=== PATIENT | female | born 1945 | race Two or more races ===

== ENCOUNTER 2024-08-31 09:54 | Emergency (ER) | payer MEDICARE, SELFPAY ==
[2024-08-31] VITALS (8 sets, daily range): BP systolic 132–165; BP diastolic 77–91; PULSE 71–90; RESP 18; TEMP 37.1; O2SAT 95–98; BMI 29.1
--- NOTE | 2024-08-31 10:05 | PC.NURSE ---
FSBS is 325 at this time.
[2024-08-31 10:09] LABS: POC Glucose,Bedside 325 (70-110)
--- NOTE | 2024-08-31 10:14 | CT_ITS ---
FINAL REPORT TECHNIQUE: Pre-and postcontrast images of the abdomen and pelvis were performed by computed tomography. Extensive 3-D reconstruction images were performed. A CTA was performed. This study was performed with techniques to keep radiation doses as low as reasonably achievable (ALARA). Individualized dose reduction techniques using automated exposure control or adjustment of mA and/or kV according to the patient's size were employed. CLINICAL HISTORY: pain with eating/vomiting/food aversion. r/o EDDIE COMPARISON: None FINDINGS: ABDOMEN AND PELVIS: The lung bases are clear. Precontrast images demonstrate no evidence of nephrolithiasis. Mild bilateral adrenal hyperplasia is present. Mild fatty infiltration of the liver is noted. The gallbladder has been surgically resected. The pancreas appears unremarkable. There is relative hypoperfusion of the lower pole of the left kidney in the upper pole of the right kidney, best seen on images #84 through 100 of series 1001. The uterus is eccentric to the left. CTA: The abdominal aorta is proper caliber. Dense calcification is present at the origin of the celiac axis, that is likely producing approximately 50% luminal diameter stenosis. There is also calcification present at the origin of the superior mesenteric artery, and at this level the plaque appears to cause less than 50% luminal diameter stenosis. The inferior mesenteric artery is patent. There are 2 right renal arteries present and a single left renal artery, without significant stenosis. The common iliac, and external iliac arteries are unremarkable in appearance. IMPRESSION: There is relative hypoperfusion during the arterial phase of the lower pole of the left kidney on the upper pole of the right kidney as described above. This is of uncertain etiology, and may be secondary to either small vessel disease or potentially emboli. The renal arteries themselves on the CTA images appear unremarkable. Dense calcification is present at the origin of the celiac axis, that is likely producing approximately 50% luminal diameter stenosis. There is calcification also present at the origin of the superior mesenteric artery, which appears to cause less than 50% luminal diameter stenosis. Reviewed, Interpreted and Dictated by Juve Antoine MD Transcribed by Kathie Roy Authenticated and [facility]
--- NOTE | 2024-08-31 10:15 | XR_ITS ---
FINAL REPORT CLINICAL HISTORY: LLL wheezes, vomiting COMPARISON: None FINDINGS: A single portable view of the chest was obtained. The heart size is normal. The mediastinum is normal. There is no focal infiltrate or edema. Chronic changes are present in the lung bases. There are no pleural effusions. There is no pneumothorax. There is 20 degrees of thoracic scoliosis, apex to the left. IMPRESSION: Chronic changes are present in the lung bases, with no acute cardiopulmonary process. Reviewed, Interpreted and Dictated by Juve Antoine MD Transcribed by Kathie Roy Authenticated and [facility]
--- NOTE | 2024-08-31 10:17 | PC.NURSE ---
RT notified of VBG in lab at this time
--- NOTE | 2024-08-31 10:18 | ED_ITS ---
Discharge Plan Disposition Patient Disposition: Home, Self-Care Condition: Good Prescriptions Prescriptions: New insulin glargine 100 unit/mL (3 mL) insulin pen 20 unit SQ HS Qty: 15 3RF ondansetron 4 mg tablet,disintegrating 4 mg PO Q6H PRN (Reason: nausea and vomiting) Qty: 10 2RF lisinopril 5 mg tablet 5 mg PO DAILY Qty: 30 3RF pravastatin 40 mg tablet 40 mg PO DAILY Qty: 30 2RF No Action pravastatin 40 mg Tablet 40 mg PO DAILY lisinopril 5 mg Tablet 5 mg PO DAILY Referrals Follow up/Referrals: Mitali Johnson APRN [Primary Care Provider] - See instructions Activity Restrictions/Add. Instructions Additional Instructions/Restrictions: Call your family doctor to establish care for this visit to the emergency department and schedule follow-up within 48 hours to ensure improvement. If you have any worsening of your condition or any other concerning signs or symptoms, return to the emergency department or your primary care doctor for further evaluation. Tomorrow, 09/01, inject 20 units at night of the long-acting Lantus pen. Lantus also sent to pharmacy of choice at [facility]. Continue working with insurance and following up with Dr. Jarrett. Endocrinology will be joining [facility] in the next couple of months, not accepting patients yet, but I would discuss this with your family doctor when establishing care. Continue to follow with Mitali Johnson at the clinic for further meds and refills. Clinical Impressions Clinical Impression: Diabetes mellitus Qualifiers: Diabetes mellitus type: type 2 Diabetes mellitus jail insulin use: with jail use Diabetes mellitus complication status: without complication Q ualified Code(s): E11.9 - Type 2 diabetes mellitus without complications Instructions Patient Instructions: DI for Hyperglycemia -- Adult Print Language Print Language: Yi Discharge ED Provider: Bashir Kraus General Adult HPI General Chief complaint: Hyper/Hypoglycemia Stated complaint: Blood sugar 359- has not eaten for a few days/weak Time Seen by Provider: 08/31/24 10:02 Mode of Arrival: Wheelchair Source of Information: Patient Description of Symptoms (Recalled from ER Triage Doc. by RN): Patient presents to ED with high blood sugar and no food intake since thursday. Patient reports stomach cramps and vomiting. Patient reports last BM was this morning. History of Present Illness HPI narrative: Please note that above description of symptoms, in this electronic medical record under categorization of recalled from ER triage doctor by RN are reflective of an initial nursing assessment, however, is not reflective of my full history and physical exam that was personally taken and clarified. Consequentially, this preceding description of symptoms, which may include the patient's categorized chief complaint in the EMR, do not reflect my personal clinical impression, and the ultimate description of history of present illness and patient stated complaints should be deferred to this section of the note. Unless stated otherwise or congruent with this section of the note, additional signs, symptoms, or incongruence should be interpreted as inaccurate with my clinical impression. Related Data Home Medications ?Medication ?Instructions ?Recorded ?Confirmed lisinopril 5 mg tablet 5 mg PO DAILY 08/31/24 08/31/24 pravastatin 40 mg tablet 40 mg PO DAILY 08/31/24 08/31/24 Previous Rx's ?Medication ?Instructions ?Recorded insulin glargine 100 unit/mL (3 20 unit (0.2 mL) SQ HS #15 mL 08/31/24 mL) subcutaneous pen lisinopril 5 mg tablet 5 mg PO DAILY #30 tabs 08/31/24 ondansetron 4 mg disintegrating 4 mg PO Q6H PRN nausea and 08/31/24 tablet vomiting #10 tabs pravastatin 40 mg tablet 40 mg PO DAILY #30 tabs 08/31/24 Allergies Allergy/AdvReac Type Severity Reaction Status Date / Time No Known Allergies Allergy Verified 08/31/24 10:15 [facility] Disclaimer: The information contained in this section may have been updated after the patient was seen, as this information can be updated by other users. Social History Smoking Status: Never smoker alcohol intake: never current occupational status: retired Travel in the last 8 weeks?: None ROS Obtained: Yes All systems reviewed & no additional complaints except as documented Physical Exam General General appearance: alert and in no apparent distress Head Head exam: atraumatic and normocephalic Eye Eye exam: Present normal appearance, PERRL and EOMI Neck Neck exam: Present normal inspection, full ROM and trachea midline Respiratory Respiratory exam: Present wheezes (Left lower lung isolated anteriorly); Absent respiratory distress, stridor, accessory muscle use or prolonged expiratory phase Cardiovascular Cardiovascular exam: Present regular rate, normal rhythm, normal heart sounds and other (Pulses equal symmetric in upper and lower extremities) Abdominal Exam Abdominal exam: Present soft and tenderness; Absent distention, guarding, rebound, rigidity or pulsatile mass Abdominal tenderness: Present diffuse and moderate Extremities Exam Extremities exam: Absent edema Neurological Exam Neurological exam: Present alert, oriented X3, CN II-XII intact and normal gait; Absent motor sensory deficit Skin Skin exam: Present warm and dry; Absent diaphoresis or erythema Medical Decision Making Medical Records Medical records reviewed: Yes I reviewed the patient's medical records. Screening: Per USPSTF and CDC recommendations, given the prevalence of disease in our region, it is our hospital?s policy to screen for HIV and viral Hepatitis for all patients aged 18 and over and those with ongoing risk factors. Kike Inquiry Pt receiving controlled substance: No Kike was queried for this patient: No Vital Signs: 08/31/24 10:10 08/31/24 10:30 08/31/24 11:00 Temperature 98.8 F Temperature Source Oral Pulse Rate 86 82 Pulse Rate [Right Brachial] 90 Respiratory Rate 18 Blood Pressure 132/77 165/79 H Blood Pressure [Right Arm] 144/84 H Blood Pressure Mean [Right Arm] 104 Blood Pressure Source Blood Pressure Source [Right Arm] Automatic Cuff Blood Pressure Position Blood Pressure Position [Right Arm] Supine 02 Sat by Pulse Oximetry 98 95 98 Oxygen Delivery Method Room Air Room Air Room Air 08/31/24 11:31 08/31/24 12:01 08/31/24 12:31 Temperature Temperature Source Pulse Rate 80 82 87 Pulse Rate [Right Brachial] Respiratory Rate Blood Pressure 143/81 H 141/77 H 161/91 H Blood Pressure [Right Arm] Blood Pressure Mean [Right Arm] Blood Pressure Source Blood Pressure Source [Right Arm] Blood Pressure Position Blood Pressure Position [Right Arm] 02 Sat by Pulse Oximetry 95 96 95 Oxygen Delivery Method Room Air Room Air Room Air 08/31/24 13:00 08/31/24 13:36 Temperature 98.7 F Temperature Source Oral Pulse Rate 71 75 Pulse Rate [Right Brachial] Respiratory Rate 18 Blood Pressure 156/84 H 152/80 H Blood Pressure [Right Arm] Blood Pressure Mean [Right Arm] Blood Pressure Source Automatic Cuff Blood Pressure Source [Right Arm] Blood Pressure Position Supine Blood Pressure Position [Right Arm] 02 Sat by Pulse Oximetry 96 Oxygen Delivery Method Room Air Room Air Lab Data Lab Results 08/31/24 10:02: POC Glucose 325 H* 08/31/24 10:06: WBC 12.9 H, RBC 5.06, Hgb 14.0, Hct 43.0, MCV 85.0, MCH 27.7, MCHC 32.6, RDW 13.4, Plt Count 250, MPV 11.8 H, Neut % (Auto) 74.8, Lymph % (Auto) 18.0, [place] % (Auto) 6.3, Eos % (Auto) 0.2, Baso % (Auto) 0.3, Neut # (Auto) 9.7 H, Lymph # (Auto) 2.3, [place] # (Auto) 0.8, Eos # (Auto) 0.0, Baso # (Auto) 0.0, PT 11.2, INR 1.00, APTT 26.5, Sodium 135 L, Potassium 5.0, Chloride 101, Carbon Dioxide 26, Anion Gap 13.0, BUN 23 H, Creatinine 1.00, Estimated Creat Clear 42, Estimated GFR 53 L, Est GFR ( Amer) 65, Glucose 373 H, H emoglobin A1c 12.6 H, Calcium 9.5, Magnesium 2.0, Total Bilirubin 0.9, AST 27, ALT 17, Alkaline Phosphatase 91, Troponin I < 0.01, Total Protein 8.0, Albumin 4.6, Globulin 3.4 H, Albumin/Globulin Ratio 1.4, Triglycerides 169 H, Cholesterol 183, LDL Cholesterol Direct 85.26 L, VLDL Cholesterol 34, HDL Cholesterol 67 H, Cholesterol/HDL Ratio 2.7, Lipase 227, Procalcitonin 0.060, Acetone Level None detected 08/31/24 10:18: VBG pH 7.36, VBG pCO2 42.1, VBG pO2 36.5, VBG HCO3 23.2, VBG Total CO2 24.5, VBG O2 Saturation 70.4 H, VBG Base Excess -2.2, VBG Lactic Acid 2.4 H 08/31/24 11:11: Urine Color Yellow, Urine Appearance Clear, Urine pH 5.5, Ur Specific [place] 1.015, Urine Protein Trace, Urine Glucose (UA) 3+, Urine Ketones 1+, Urine Blood Negative, Urine Nitrate Negative, Urine Bilirubin Negative, Urine Urobilinogen 0.2, Ur Leukocyte Esterase Negative, Urine RBC None, Urine WBC Occasional, Ur Squamous Epith Cells Occasional, Ur Transition Epith Cell Occ, Ur Renal Epithelial Cell Occasional, Urine Bacteria Trace, Hyaline Casts 3-5 08/31/24 10:06 08/31/24 10:06 Orders (Tests/Meds): ED MEDICATIONS Discontinued Medications Generic Name Dose Route Start Last Admin Trade Name Freq PRN Reason Stop Dose Admin Acetaminophen 1,000 mg 08/31/24 10:44 08/31/24 10:47 Acetaminophen 1,000mg/100ml Vial IV 08/31/24 10:45 1,000 mg ONCE ONE Administration Lactated Ringer's 1,000 mls @ 999 mls/hr 08/31/24 10:44 08/31/24 10:47 Lactated Ringer's 1000 Ml Bag IV 08/31/24 11:44 999 mls/hr .Q1H1M ONE Administration Insulin Glargine 10 unit 08/31/24 12:17 08/31/24 12:38 Insulin Glargine 100 Units/Ml 10ml Vial SUBCUT 08/31/24 12:18 Not Given ONCE ONE Insulin Glargine 10 unit 08/31/24 12:45 08/31/24 12:37 Insulin Glargine 100 Units/Ml 3ml Flexpen SUBCUT 08/31/24 12:46 10 units ONCE ONE Administration Insulin Human Regular 6 unit 08/31/24 11:24 08/31/24 11:28 Insulin Human Regular 100 Units/Ml 10ml Vial 0.1 unit/kg (6 unit) 08/31/24 11:25 6 unit IV Administration ONCE ONE Iopamidol 80 ml 08/31/24 10:49 08/31/24 10:50 Iopamidol-370 (76%);100ml Bottle IV 08/31/24 10:50 80 ml ONCE ONE Administration Ketorolac Tromethamine 15 mg 08/31/24 10:44 08/31/24 10:47 Ketorolac 30mg/Ml Vial IV 08/31/24 10:45 15 mg ONCE ONE Administration Ondansetron HCl 4 mg 08/31/24 10:44 08/31/24 10:48 Ondansetron 4mg/2ml Vial IV 08/31/24 10:45 4 mg ONCE ONE Administration Sodium Chloride 50 ml 08/31/24 10:49 08/31/24 10:50 0.9 % Sodium Chloride 50 Ml Vial IV 08/31/24 10:50 50 ml ONCE ONE Administration Sodium Chloride 10 ml 08/31/24 10:49 08/31/24 10:50 Sodium Chloride 0.9% 10ml Syr (Rad Only) IV 08/31/24 10:50 10 ml ONCE ONE Administration ORDERS Category Date Time Status CT angio abdomen pelvis Stat Cat Scan 08/31/24 10:14 Completed XR chest portable Stat Exams 08/31/24 10:15 Completed Acetone, Serum (Rapid) Stat Lab 08/31/24 10:06 Completed Complete Blood Count Auto Diff Stat Lab 08/31/24 10:06 Completed Comprehensive Metabolic Panel Stat Lab 08/31/24 10:06 Completed Hemoglobin A1C Stat Lab 08/31/24 10:06 Completed Lipase Stat Lab 08/31/24 10:06 Completed Lipid Panel Stat Lab 08/31/24 10:06 Completed Magnesium Stat Lab 08/31/24 10:06 Completed POC Glucose,Bedside Routine Lab 08/31/24 10:02 Completed PT INR [Prothrombin Time INR] Stat Lab 08/31/24 10:06 Completed PTT [Activated Partial Thrombo Time] Stat Lab 08/31/24 10:06 Completed Procalcitonin Stat Lab 08/31/24 10:06 Completed Troponin I Stat Lab 08/31/24 10:06 Completed Urinalysis and Microscopic Stat Lab 08/31/24 11:11 Completed VBG [Venous Blood Gas] Stat RT 08/31/24 10:18 Completed HEART Score History (anamnesis): Slightly suspicious ECG: Non-specific disturbance Age: >65 years Risk factors: 3 or more risk factors Troponin: </= normal limit HEART Score: 5 Medical Decision Narrative: 78-year-old female history of dementia, diabetes on oral and subcutaneous therapies presenting with abdominal pain and vomiting. This been going on for about a week. Family states she has had 0 p.o. intake for at least a week at this point. Becoming progressively weak. Still mentating at her baseline, despite her dementia. Has been taking her meds as prescribed, reportedly by and daughter. Patient states that the vomiting started first, abdominal pain started a couple days later. Last bowel movement was today, 08/31 and was normal for her without blood, straining, constipation, diarrhea, etc. Patient has not had fevers, chills, urinary symptoms. No systemic signs or symptoms. Vomiting mostly in the setting of p.o. intake. Patient states that the pain was worse yesterday, 08/30, much better today. States that it is epigastric and radiates upward into her chest as well as downward into her pelvis. Nothing in particular makes it better or worse other than not eating. History was obtained via conversation with patient, family, certified professional coder. On arrival, patient hemodynamically stable, alert, oriented to person, place, situation, appropriate, GCS 15, moving all extremities spontaneously, pupils equal and reactive to light. Full physical exam performed and significant for chronically ill-appearing female who is in no acute distress. She is holding her abdomen. Appears to be more tender in the epigastrium, but mild to moderate diffuse tenderness. Nonperitoneal, no flank tenderness. No outward signs of abnormality. She is nondistended. Cardiac exam with no murmurs gallops or rubs, nontachycardic. Lungs are clear with the exception of anterior left lower lung nur with isolated wheezes. Differential includes pneumonia, ACS, [place], gastritis, gastroparesis, nonocclusive mesenteric ischemia, appendicitis, enteritis, cholecystitis, aortic pathology, among others. Patient placed on continuous cardiac monitoring and continuous pulse ox with initial blood pressure 144/84, heart rate 90, saturation 98% on room air. Independent interpretation of EKG shows sinus rhythm 84 bpm with left axis deviation and LA interval 145, QRS 89, QTc 404. T wave inversions in lateral and inferior leads without reciprocal elevations. Patient was given fluids, Zofran, Toradol, acetaminophen for symptomatic management and correction of underlying abnormalities. Workup independently interpreted and significant for mild leukocytosis, but nonactionable coags, nonactionable VBG. Patient's chemistry largely nonactionable other than glucose 373 and hemoglobin A1c 12.6. Troponin negative and lipid panel also elevated. Lipase negative, urinalysis with mild ketonuria, otherwise unremarkable. On independent interpretation of imaging, no acute cardiopulmonary space disease on chest x-ray. CT abdomen and pelvis without acute intra-abdominal pathology. Just chronic vascular changes. See radiology read for full review of final results. Heart score 5. Prolonged conversation had with patient and family regarding outpatient management. I also consulted the hospitalist on-call and talk to him about outpatient management. After talking to family, I reached out to the pharmacy that used to follow with in [facility] at [facility]. They state that they had patient on long-acting insulin glargine 10 units but no short acting. Also had her on Ozempic 1 mg and lisinopril and pravastatin. Glargine, statin and OFE inhibitor were sent to the pharmacy. Patient was given first dose of glargine insulin here in the emergency department. 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 Patient family graciously agreed and verified their understanding. Also have follow-up at the [facility] as well as try to get follow-up with Dr. Jarrett. Because patient at baseline without signs or symptoms of clinical decompensation, deemed appropriate for discharge. Results were relayed to patient who voiced understanding and were agreeable to outpatient management and follow up. I discussed my clinical impression with patient and answered all questions. At this time, the evidence for any other entities in the differential is insufficient to warrant any further testing or ED observation. This was explained as well. Advisory was given that persistent or worsening symptoms require further evaluation. I confirmed the understanding of this discussion. Field Crew Chief disclaimer Much of this encounter note is an electronic r and d lab technician spoken language to printed text. Electronic r and d lab technician of the spoken language may permit errors. Although I have reviewed the note, some errors may still exist. Critical Care Critical Care Time Critical Care Time: No
[2024-08-31 10:22] LABS: Basophils % 0.3 % (0.1-2.0); Eosinophils % 0.2 % (0.1-12.0); Lymphocytes # 2.3 K/mm3 (0.7-4.5); Mean Corpuscular HGB Conc 32.6 g/dL (31.8-35.4); Mean Corpuscular Hemoglobin 27.7 pg (27.0-31.2); Mean Platelet Volume 11.8 fl (7.4-10.4); Monocytes # 0.8 K/mm3 (0.1-1.0); Monocytes % 6.3 % (1.7-9.3); Neutrophils # 9.7 K/mm3 (1.8-7.8); Neutrophils % 74.8 % (37.0-80.0); Nucleated Red Blood Cells # 0 10^3/uL; Nucleated Red Blood Cells % 0 %; Platelet Count 250 K/mm3 (142-424); Red Blood Count 5.06 M/mm3 (4.20-5.40); Red Cell Distribution Width 13.4 % (11.5-17.5); Red Cell Distribution Width-SD 41.4 fL; White Blood Count 12.9 K/mm3 (4.8-10.8)
[2024-08-31 10:23] LABS: VBG Base Excess -2.2 mmol/L (-2.4-2.3); VBG HCO3 23.2 mmol/L (23-30); VBG Oxygen Saturation 70.4 % (50-70); VBG PCO2 42.1 mmol/L (35-51); VBG PH 7.36 mmol/L (7.31-7.41); VBG PO2 36.5 mmol/L (28-40); VBG Total CO2 24.5 mmol/L (23-27)
[2024-08-31 10:24] LABS: Lactate Venous 2.4 mmol/L (0.4-2.0)
[2024-08-31 10:24] LABS: Acetone, Serum (Rapid) None Detected (None Detect)
[2024-08-31 10:29] LABS: Alanine Aminotransferase 17 U/L (12-78); Albumin Level 4.6 g/dl (3.5-5.0); Albumin/Globulin Ratio 1.4 (1.1-1.8); Alkaline Phosphatase 91 U/L (38-126); Aspartate Amino Transferase 27 U/L (14-36); Bilirubin,Total 0.9 mg/dl (0.2-1.3); Blood Urea Nitrogen 23 mg/dl (7-17); Calcium 9.5 mg/dl (8.4-10.2); Carbon Dioxide 26 mmol/L (22.0-30.0); Chloride 101 mmol/L (98-107); Creatinine Clearance Estimated 42 mL/min (50-200); Estimated Glomerular Filt Rate 53 ml/min (>60); GFR (African American) 65 ML/MIN (>60); Globulin 3.4 g/dL (1.3-3.2); Glucose 373 mg/dl (74-100); Lipase 227 U/L (23-300); Sodium 135 mmol/L (136-145)
[2024-08-31 10:30] LABS: Activated Partial Thrombo Time 26.5 seconds (22.8-30.6)
[2024-08-31 10:38] LABS: Chol/HDL Ratio 2.7 (1-3.5); Cholesterol 183 mg/dl (140-200); HDL Cholesterol 67 mg/dl (40-60); Triglycerides 169 mg/dl (30-150); VLDL Cholesterol 34 mg/dL (0-40)
[2024-08-31 10:47] LABS: Prothrombin Time 11.2 seconds (10.1-12.5)
[2024-08-31] MEDS: KETOROLAC 30MG/ML VIAL 15 MG IV (10:47)
[2024-08-31] MEDS: LACTATED RINGERS 1000ML 1,000 ML 999 ML IV (10:47)
[2024-08-31] MEDS: ACETAMINOPHEN 1,000MG/100ML VIAL 1000 MG IV (10:47)
[2024-08-31 10:48] LABS: Direct LDL Cholesterol 85.26 mg/dL (100-129)
[2024-08-31] MEDS: ONDANSETRON 4MG/2ML VIAL 4 MG IV (10:48)
[2024-08-31 10:49] LABS: Troponin I < 0.01 ng/ml (0.00-0.034)
[2024-08-31] MEDS: 0.9 % SODIUM CHLORIDE 50 ML VIAL IV (10:50)
[2024-08-31] MEDS: IOPAMIDOL-370 (76%);100ML BOTTLE 80 ML IV (10:50)
[2024-08-31] MEDS: SODIUM CHLORIDE 0.9% 10ML SYR (RAD ONLY) 10 ML IV (10:50)
[2024-08-31 11:04] LABS: Hemoglobin A1C 12.6 % (4.0-6.0)
--- NOTE | 2024-08-31 11:05 | ECG_ITS ---
APPROVED REPORT Exam: Resting ECG HR:84 bpm ECG Measurements Heart Rate 84 AXES IN 145 P 49 QRSd 89 QRS -49 QT 363 T -10 QTc 404 Conclusion Sinus rhythm Left axis deviation Nonspecific ST and T wave changes Electronically signed by : CHARLES HUITRON, 09/01/2024 11:05:07
[2024-08-31 11:17] LABS: Microscopic, Urine URINE MICROSCOPIC (MICROSCOPIC)
[2024-08-31 11:19] LABS: Appearance,Urine CLEAR (Clear); Bilirubin,Urine Negative (Negative); Blood, Urine Negative (Negative); Color,Urine YELLOW (Yellow); Glucose,Urine (UA) 3+ (Negative); Ketones,Urine 1+ (Negative); Leukocyte Esterase,Urine Negative (Negative); Nitrate,Urine Negative (Negative); PH,Urine 5.5 (5.0-8.5); Protein,Urine TRACE (Negative); Specific Gravity, Urine 1.015 (1.005-1.030); Urobilinogen,Urine 0.2 EU/dl (0.2)
[2024-08-31] MEDS: INSULIN HUMAN REGULAR 100 UNITS/ML 10ML VIAL 6 UNIT IV (11:28)
[2024-08-31 11:30] LABS: Bacteria,Urine Trace /lpf; Squamous Epithelial Cell,Urine Occasional #/hpf (0-5); WBC,Urine Occasional #/hpf (0-3)
[2024-08-31 11:31] LABS: Renal Epithelial Cells,Urine Occasional #/lpf (0); Transitional Epi Cells,Urine OCC #/lpf (0-3)
[2024-08-31] MEDS: INSULIN GLARGINE 100 UNITS/ML 3ML FLEXPEN 10 UNIT SUBCUT (12:37)
[2024-08-31 14:25] LABS: Reflex Lactic Add Lactic Reflex
== END 2024-08-31 13:51 | disposition home or self-care (01) ==
PROVIDERS: Emergency Provider Emergency Medicine; PCP Nurse Practitioner Family
DX: R10.13 Epigastric pain (principal); E11.65 Type 2 diabetes mellitus with hyperglycemia; R11.2 Nausea with vomiting, unspecified
CPT/HCPCS: 71045; 74174; 80053; 80061; 81001; 82009; 82803; 82962; 83036; 83690; 83735; 84145; 84484; 85025; 85610; 85730; 93005; 96361; 96374; 96375; 99285; J0131; J1885; J2405; J7120; Q9967

== ENCOUNTER 2024-12-02 12:17 | Outpatient (CLI) | payer MEDICARE, SELFPAY ==
--- OUTSIDE RECORDS SUMMARY | 2013-11-11 10:32 | XMS_ITS | Continuity of Care Document ---
Author Organization [facility] Address [address] [facility] [address] [place] [address] Phone Care Team Providers Care It Integration Architect Name Role Phone Zenon Ricci MD Unavailable [...] Providers Copied on Encounter [facility], [address] [place] [address], [id number], tel:[phone] [facility] No Information Radhames Yarbrough. [address], [place], [address], [place]. tel:[phone] Offic/outpt E&m Estab Low-mod [facility], [address] [facility] [address] [place], [place], [id number], tel:[phone] [facility] No Information Kwesi Montanez. [address], [id number], [place]. tel:[phone] Referring Provider: Tarik Rivas, [address], [address] . tel:[phone] [facility], [address] , [place], [place], [id number], tel:[phone] [facility] No Information Kwesi Montanez. [address] [facility] 19 , [place], [address] [place] [address], . tel:[phone] Referring Provider: Tarik Rivas, [address] [facility] , [place], [place], [address] [place] [address] . tel:[phone] [facility], [address] [facility] , [place], [address] [place] [address], tel:[phone] [facility] No Information Kwesi Montanez. [address], [place], [address] [place] [address], . tel:[phone] Referring Provider: Tarik Rivas, [address] [facility], [place], [address] [place] [address] . tel:[phone] [facility], [address] [facility], [place], [address] [place] [address], tel:[phone] [facility] No Information Kwesi Baxter MD Tarik. [address] [facility], [place], [address] [place] [address], . tel:[phone] Referring Provider: Yoel Malone, [address] , [place], [address] . tel:[phone] [facility], [address] [facility] , [place], [address] [place] [address], tel:[phone] [facility] No Information No Information [facility], [address] [facility] , [place], [place], [id number], tel:[phone] [facility] No Information Oneil Diallo. [address], [address] [place] [address], . tel:[phone] [facility], [address], [place], [address] [place] [address], tel:[phone] [facility] No Information [facility]. [address], [address] [place] [address], . tel:[phone] Referring Provider: Yoel Malone, [address] [place] [address], [address] [place] [address] . tel:[phone] [facility], [address], [address] [place] [address], tel:[phone] [facility] No Information Robert Tran. [address], [address] [place] [address], . tel:[phone] Referring Provider: Yoel Malone, [address] [place] [address], [address] [place] [address] . tel:[phone] [facility], [address], [address] [place] [address], tel:[phone] [facility] No Information Oneil Diallo. [address], [address] [place] [address], . tel:[phone] Family History Family Member Type Diagnosis Age At Onset No Information Payers Payer name Insurance type Covered constitution party ID Authoriza tion(s) Medicare [id number] Medicaid [id number] Social History Type Description Quantity Date Captured [...]
--- OUTSIDE RECORDS SUMMARY | 2024-09-07 05:25 | XMS_ITS | Continuity of Care Document ---
Author Organization [facility] Address [address] [place] [address] Phone Care Team Providers Care Broadcast Checker Name Role Phone Alex MSN, RN TELEMETRY, Mitali Unavailable Unavai lable Allergies, Adverse Reactions, Alerts Substance Reaction Status Criticality NO KNOWN ALLERGIES Active No Inform ation Medications Medication Instructions Dosage Effective Dates (start - stop) Status Comments FreeStyle Nuria 3 Plus Sensor device To use with [employer] Carestyle Nuria 3 reader, change every 15 days [...] at bedtime - Active FreeStyle Nuria 3 [place] to be used daily for bs monitoring - Active Advance Directives Directive Yes / No Effective Date File Name No Information Encounters Encounter Description Practice Location Reason(s) For Visit Diagnoses Date Provider [facility], [address] [place], [address], tel:[phone] FEDERA-G-H DIETERFaisal JUAQUIN No Information Alex Jasmine. [address], [place], [id number] , . tel: [phone] [facility], [address] [place], [address], tel:[phone] NESTORISIDORO-G-H HRSA JUAQUIN Dominguez (chief complaint) Depression screening (chief complaint) new to establish (chief complaint) Encounter for screening for depressionExtreme povertyLess than a high school diplomaBody mass index [BMI] 24.0-24.9, adultType 2 diabetes mellitus without complicationsHyperlipidem ia, unspecifiedEssential (primary) hypertensionHyponatremiaC hronic kidney disease, stage 3aBacteremiaFatty liver Alex Jasmine. [address], [place], [id number] , . tel: [phone] Family History Family Member Type Diagnosis Age At Onset No Information Payers Payer name Insurance type Covered green party ID Authoriza prosperrudy(s) [facility] Adv Hum[employer] CI [id number] Social History Type Description Quantity Date Captured [...] due Goal Obtain Height, Weight, and B [place]. Due on due Goal Lifestyle education regardin g diet completed History Of Present Illness Encounter Date Complaint History Of Prese nt Illness new to establish Guera is a 78 yo woman here today with h er step daughter and . She is Turkmen speaking only. Per her/family report she has [...] 08/31/24 she was in the ER at [facility] for hyperglycemia. They started her on 10 units of Lantus in the am, and 20 in the evening. He A1c was 12.6, and finger glucose was 325. I am adjusting medications to 20 units Lantus at bedtime, will try Jardiance 10 mg daily for cardioprotective benefits. Unable to take metformin r/t difficulty swallowing large pills. Guear had complained of pain with eating, vomiting [...] Dementia- reported by familyBilateral adrenal hyperplasiafatty liver- [id number] degree thorasic Scoliosis-apex to the leftChronic adilene [...]
--- NOTE | 2024-12-02 12:25 | XR_ITS ---
FINAL REPORT CLINICAL HISTORY: Fall at home, back pain FINDINGS: AP and lateral views of the lumbar spine were obtained. There is no prior exam for comparison. There is no acute fracture or malalignment. Vertebral body height is preserved. There is mild dextroscoliosis. Multilevel degenerative disc disease is identified, most pronounced at L2-3. No acute paraspinal abnormality. IMPRESSION: Degenerative disc disease. Reviewed, Interpreted and Dictated by Nyasia Bullock MD Transcribed by Unique Gibson Authenticated and [facility]
--- NOTE | 2024-12-02 12:25 | XR_ITS ---
FINAL REPORT CLINICAL HISTORY: Fall at home, back pain FINDINGS: A single view of the pelvis was obtained. There is no acute fracture or dislocation. There is mild degenerative disease. Soft tissues are unremarkable. IMPRESSION: No acute bony abnormality. Reviewed, Interpreted and Dictated by Nyasia Bullock MD Transcribed by Unique Gibson Authenticated and [facility]
== END 2024-12-02 23:59 | disposition home or self-care (01) ==
PROVIDERS: PCP Internal Medicine; Visit Provider Internal Medicine
DX: M51.369 Other intervertebral disc degeneration, lumbar region without mention of lumbar back pain or lower extremity pain (principal); T14.90XA Injury, unspecified, initial encounter; W19.XXXA Unspecified fall, initial encounter; Y92.009 Unspecified place in unspecified non-institutional (private) residence as the place of occurrence of the external cause
CPT/HCPCS: 72100; 72170

== ENCOUNTER 2025-01-17 09:40 | Outpatient (CLI) | payer MEDICARE, SELFPAY ==
--- OUTSIDE RECORDS SUMMARY | 2013-11-11 10:32 | XMS_ITS | Continuity of Care Document ---
Author Organization [facility] Address [address] [facility] [address] [place] [address] Phone Care Team Providers Care Coat Checker Name Role Phone Zenon Ricci MD Unavailable [...] day left eye 1 drop - Active bromfenac 0.09 % Eye Drops insert 1 by Ophthalmic route 2 times every day left eye 1 - Active glyburide 2.5 mg Tab take 1 tablet (2.5M G) by oral route every day before breakfast 2.5 MG - Active metformin 1,000 mg Tab take 1 tablet (1000MG) by oral route 2 times every day with morning and evening meals 1000 MG - Active Procedures Procedure Date Offic/outpt E&m [...] Diagnoses Date Provider Providers Copied on Encounter [facility], [address] [place] [address], [id number], tel:[phone] [facility] No Information Radhames Yarbrough. [address], [place], [address], [place]. tel:[phone] Offic/outpt E&m Estab Low-mod [facility], [address] [facility] [address] [place], [place], [id number], tel:[phone] [facility] No Information Kwesi Montanez. [address], [id number], [place]. tel:[phone] Referring Provider: Tarik Rivas, [address], [address] . tel:[phone] [facility], [address] , [place], [place], [id number], tel:[phone] [facility] No Information Kwesi Montanez. [address] [facility] 19 , [place], [address] [place] [address], . tel:[phone] Referring Provider: Tarik Rivas, [address] [facility] , [place], [address] [place] [address] . tel:[phone] [facility], [address] [facility] , [place], [address] [place] [address], tel:[phone] [facility] No Information Kwesi Montanez. [address], [place], [address] [place] [address], . tel:[phone] Referring Provider: Tarik Rivas, [address] [facility], [place], [address] [place] [address] . tel:[phone] [facility], [address] [facility], [place], [address] [place] [address], tel:[phone] [facility] No Information Kwesi Baxter MD Tarik. [address] [facility], [place], [address] [place] [address], . tel:[phone] Referring Provider: Yoel Malone, [address] , [place], [address] . tel:[phone] [facility], [address] [facility] , [place], [address] [place] [address], tel:[phone] [facility] No Information No Information [facility], [address] [facility] , [place], [place], [id number], tel:[phone] [facility] No Information Oneil Diallo. [address], [address] [place] [address], . tel:[phone] [facility], [address], [place], [address] [place] [address], tel:[phone] [facility] No Information [facility]. [address], [address] [place] [address], . tel:[phone] Referring Provider: Yoel Malone, [address] [place] [address], [address] [place] [address] . tel:[phone] [facility], [address], [address] [place] [address], tel:[phone] [facility] No Information Robert Tran. [address], [address] [place] [address], . tel:[phone] Referring Provider: Yoel Malone, [address] [place] [address], [address] [place] [address] . tel:[phone] [facility], [address], [address] [place] [address], tel:[phone] [facility] No Information Oneil Diallo. [address], [address] [place] [address], . tel:[phone] Family History Family Member Type Diagnosis Age At Onset No Information Payers Payer name Insurance type Covered libertarian ID Authoriza tion(s) Medicare [id number] Medicaid [id number] Social History Type Description Quantity Date Captured Comments Sex Female Smoking Status No Information Chief Complaint And Reason For Visit No [...]
--- OUTSIDE RECORDS SUMMARY | 2024-09-07 05:25 | XMS_ITS | Continuity of Care Document ---
Author Organization [facility] Address [address] [place] [address] Phone Care Team Providers Care Farmworker Brooder Farm Name Role Phone Alex MSN, HISTOLOGY SPECIALIST, Mitali Unavailable Unavai lable Allergies, Adverse Reactions, Alerts Substance Reaction Status Criticality No Known Allergies Active No Inform ation Medications Medication Instructions Dosage Effective Dates (start - stop) Status Comments FreeStyle Nuria 3 Plus Sensor device To use with Ballparcstyle Nuria 3 reader, change every 15 days [...] at bedtime - Active FreeStyle Nuria 3 [place] to be used daily for bs monitoring - Active Advance Directives Directive Yes / No Effective Date File Name No Information Encounters Encounter Description Practice Location Reason(s) For Visit Diagnoses Date Provider [facility], [address] [place], [address], tel:[phone] FEDERA-G-H DIETERFaisal JUAQUIN No Information Alex Jasmine. [address], [place], [id number] , . tel: [phone] [facility], [address] [place], [address], tel:[phone] NESTORISIDORO-G-H HRSA JUAQUIN Dominguez (chief complaint) Depression screening (chief complaint) new to establish (chief complaint) Encounter for screening for depressionExtreme povertyLess than a high school diplomaBody mass index [BMI] 24.0-24.9, adultType 2 diabetes mellitus without complicationsHyperlipidem ia, unspecifiedEssential (primary) hypertensionHyponatremiaC hronic kidney disease, stage 3aBacteremiaFatty liver Alex Jasmine. [address], [place], [id number] , . tel: [phone] Family History Family Member Type Diagnosis Age At Onset No Information Payers Payer name Insurance type Covered republican ID Authoriza prosperrudy(s) [facility] Adv Humana CI [id number] Social History Type Description Quantity Date Captured Comments Sex Female Smoking Status No Information Sexual Orientation Straight or heterosexual September Gender Identity Female Chief Complaint And Reason For Visit No Information Plan Of Treatment Date Type Action Status Goal Diabetes screening. Due on due Goal GFR. Due on due Goal Urinalysis. Due on 25 due Goal ASCVD 10 year risk. Due on due Goal Foot exam. Due on 5 due Goal Urine microalbumin. Due on due Goal ECG. Due on due Goal Dental exam. Due on 025 due Goal Pneumococcal vaccine. Due on due Goal Obtain blood Pressure. Due o n due Goal Depression screening. Due on due Goal Hemoglobin A1C. Due on due Goal Dilated eye exam. Due on September due Goal Influenza vaccine. Due on due Goal Drug Abuse Screening Test (D AST-10). Due on due Goal Follow up Plan f or abnormal BMI (Less than 18.5, greater than 25). Due on due Goal TSH. Due on due Goal CBC. Due on due Goal Hepatitis C Screening. Due o n due Goal Tobacco Use Cessation Counse ling. Due on due Goal Vitamin D. Due on due Goal Vitamin B12. Due on due Goal Generalized Anxi ety Disorder - 7 (SHAVON-7). Due on due Goal CMP. Due on due Goal Tobacco Use Screening. Due o n due Goal DEXA scan. Due on due Goal Lipid panel. Due on due Goal Unhealthy drug use screening . Due on due Goal Tobacco screening. Due on due Goal Obtain Height, Weight, and B [place]. Due on due Goal Lifestyle education regardin g diet completed History Of Present Illness Encounter Date Complaint History Of Prese nt Illness new to establish Guera is a 78 yo woman here today with h er step daughter and . She is Hebrew speaking only. Per her/family report she has [...] 08/31/24 she was in the ER at [facility] for hyperglycemia. They started her [...] Dementia- reported by familyBilateral adrenal hyperplasiafatty liver- [id number] degree thorasic Scoliosis-apex to the leftChronic adilene [...]
[2025-01-17 13:51] LABS: Hemoglobin A1C 6.7 % (4.0-6.0)
--- OUTSIDE RECORDS SUMMARY | 2025-01-18 12:05 | XMS_ITS | Patient Health Record ---
Author Organization [facility] Address [address] [place] [address] Care Team Providers Care Mailroom Personnel Name Role Phone LILI COX MD, UZAIR Primary Care Provider Unavail able Aleksandr Ford Unavailable [phone] Allergies No Known Allergies Reason For Referral No Information Medications Medication SIG (Take, Route, Frequency, Duration) Notes Start Date End Date Status Pantoprazole Sodium 40 MG Tablet Delayed Release TAKE 1 TABLET BY MOUTH EVERY DAY; Duration: 90 Active Sertraline HCl 25 MG Tablet 1 tablet Ora lly Once a day; Duration: 30 day(s) Active Fluconazole 200 MG Tablet 1 tablet Orall y once daily; Duration: 14 days 06/13/2020 Active Claritin 10 MG Tablet 1 tablet Orally On ce a day; Duration: 30 day(s) Active Fish Oil 1000 MG Capsule 1 capsule Orall y Once a day; Duration: 30 day(s) Active Pravastatin Sodium 40 MG Tablet 1 tablet Orally Once a day; Duration: 30 day(s) Active B12 1000 MG daily Active Novalog 30 units sq twice a day Active metFORMIN HCl 1000 MG Tablet 1 tablet with a meal Orally Once a day; Duration: 30 day(s) Active Aspir-Low 81 MG Tablet Delayed Release 1 tablet Orally Once a day; Duration: 30 day(s) Active Social History Tobacco Use: Social History Observation Description Date Details (start date - stop date) Never Smoker NA - NA Social History Tobacco Use: Social Info Question Answer Notes Tobacco Use/Smoking Smoking Status nonsmoker Additional Findings: Tobacco Non-User Non-smoker for personal reasons Problems Problem Type SNOMED Code ICD Code Onset Dates Problem Status W/U Status Risk Notes Problem Gastroesophageal reflux disease (519244389) Gastro-esophag eal reflux disease without esophagitis (K21.9) Active confirmed Problem Stricture of esophagus (50629243) Esophageal stenosis (K22.2) Active confirmed Problem Dysphagia (22502338) Dysphagia (R13.10) Active confirmed Plan Of Treatment Pending Test Test Name Order Date -EGD/DILATION POSSIBLE 07/11/2015 Insurance Providers Payer Name Payer Address Payer Phone Subscriber Number Group Number Insured Name Patient Relationship to Insured Coverage Start Date Coverage End Date [facility] DUAL SNP [address] [address] [place] [phone] [id number] Guera Hernandez Self - patient is the insured MEDICAID [address] [place] [address] [phone] [id number] Guera Hernandez Self - patient is the insured Medical (General) History Medical History History ICD Code diabetes mellitus hyperlipidemia gastroesophageal reflux disease (GERD) Surgical History Surgery Date(Month/Year)
== END 2025-01-17 23:59 ==
LOC: LAB.DROPOF 01-18 12:02
PROVIDERS: PCP Internal Medicine; Visit Provider Internal Medicine
DX: E11.9 Type 2 diabetes mellitus without complications (principal)
CPT/HCPCS: 82043; 82570; 83036

== ENCOUNTER 2025-04-03 06:54 | Outpatient (CLI) | payer MEDICARE, SELFPAY ==
--- OUTSIDE RECORDS SUMMARY | 2013-11-11 09:32 | XMS_ITS | Continuity of Care Document ---
Author Organization [facility] Address [address] [facility] [address] [place] [address] Phone Care Team Providers Care Software Configuration Manager Name Role Phone Zenon Ricci MD Unavailable Unavailable Medications Medication Instructions Dosage Effective Dates (start - stop) Status Comments Travatan Z 0.004 % Eye Drops instill 1 drop by ophthalmic route every day into affected eye(s) in the evening 1.00 drop - Active Acular LS 0.4 % Eye Drops instill 1 drop by ophthalmic route 2 times every day left eye 1 drop - Active metformin 1,000 mg Tab take 1 tablet (1000MG) by oral route 2 times every day with morning and evening meals 1000 MG - Active glyburide 2.5 mg Tab take 1 tablet (2.5M G) by oral route every day before breakfast 2.5 MG - Active bromfenac 0.09 % Eye Drops insert 1 by Ophthalmic route 2 times every day left eye 1 - Active Procedures Procedure Date Offic/outpt E&m Estab Low-mod 3 Optic Nerve Head Eval E-RX Generated Via E-Prescribing 2012 Oph Serv: Med Exam; Comp Est 12 Scanning Computerized Ophthalmic; Optic Nerve <content ID='ProcedureDescri ption_5' xmlns='urn:hl7-org:v3'>Visual Field Exam W/i&r; Exten</content> <content ID='ProcedureDescri ption_6' xmlns='urn:hl7-org:v3'>Ophth Exten W/ret Draw W/i&r;</content> <content ID='ProcedureDescri ption_7' xmlns='urn:hl7-org:v3'>Ophth Exten W/ret Draw W/i&r;</content> Optic Nerve Head Eval Scanning Computerized Ophthalmic; Optic Nerve <content ID='ProcedureDescri ption_10' xmlns='urn:hl7-org:v3'>Visual Field Exam W/i&r; Exten</content> Ophth Serv: Med Exam; Interm E 12 Gonioscopy (separt Proc) Echo Exam Of Eye, Thickness Optic Nerve Head Eval FACILITY Anes- Eye; Lens Surg Ophth Serv: Med Exam; Comp New 12 Ophth Biomet Part Cohernc Intr 12 Determ Refractive State Advance Directives Directive Yes / No Effective Date File Name No Information Encounters Encounter Description Practice Location Reason(s) For Visit Diagnoses Date Provider Providers Copied on Encounter [facility], [address] [place] [address], [id number], tel:[phone] [facility] No Information Radhames Yarbrough. [address], [place], [address], [place]. tel:[phone] Offic/outpt E&m Estab Low-mod [facility], [address] [facility] [address] [place], [place], [id number], tel:[phone] [facility] No Information Kwesi Montanez. [address], [id number], [place]. tel:[phone] Referring Provider: Tarik Rivas, [address], [address] . tel:[phone] [facility], [address] , [place], [place], [id number], tel:[phone] [facility] No Information Kwesi Montanez. [address] [facility] 19 , [place], [place], [address] [place] [address], . tel:[phone] Referring Provider: Tarik Rivas, [address] [facility] , [place], [address] [place] [address] . tel:[phone] [facility], [address] [facility] , [place], [address] [place] [address], tel:[phone] [facility] No Information Kwesi Montanez. [address], [place], [address] [place] [address], . tel:[phone] Referring Provider: Tarik Rivas, [address] [facility], [place], [address] [place] [address] . tel:[phone] [facility], [address] [facility], [place], [address] [place] [address], tel:[phone] [facility] No Information Kwesi Baxter MD Tarik. [address] [facility], [place], [address] [place] [address], . tel:[phone] Referring Provider: Yoel Malone, [address] , [place], [address] . tel:[phone] [facility], [address] [facility] , [place], [address] [place] [address], tel:[phone] [facility] No Information No Information [facility], [address] [facility] [address] , [place], [place], [id number], tel:[phone] [facility] No Information Oneil Diallo. [address], [address] [place] [address], . tel:[phone] [facility], [address], [address] [place] [address], tel:[phone] [facility] No Information [facility]. [address], [address] [place] [address], . tel:[phone] Referring Provider: Yoel Malone, [address] [place] [address], [address] [place] [address] . tel:[phone] [facility], [address], [address] [place] [address], tel:[phone] [facility] No Information Robert Tran. [address], [address] [place] [address], . tel:[phone] Referring Provider: Yoel Malone, [address] [place] [address], [address] [place] [address] . tel:[phone] [facility], [address], [address] [place] [address], tel:[phone] [facility] No Information Oneil Diallo. [address], [address] [place] [address], . tel:[phone] Family History Family Member Type Diagnosis Age At Onset No Information Payers Payer name Insurance type Covered alliance party ID Authoryokastaa tirudy(s) Medicare [id number] Medicaid [id number] Social History Type Description Quantity Date Captured Comments Sex Female Smoking Status No Information Sexual Orientation Don't Know Chief Complaint And Reason For Visit No Information Reason For Referral Reason For Referral No Information Plan Of Treatment Date Type Action Status Goal Breast exam. Due on 012 due History Of Present Illness Encounter Date Complaint History Of Prese nt Illness No Information Functional Status Date Functional Assessmen t No Information Instructions Date Instruction Additional Infor mation No Information Assessments Type Assessment Date No Information Patient Care Teams Name Effective Dates (start - stop) Status Members No Information
--- OUTSIDE RECORDS SUMMARY | 2024-09-07 04:25 | XMS_ITS | Continuity of Care Document ---
Author Organization [facility] Address [address] [place] [address] Phone Care Team Providers Care Middleware Administrator Name Role Phone Alex MSN, IMPORT DISPATCHER, Mitali Unavailable Unavai lable Allergies, Adverse Reactions, Alerts Substance Reaction Status Criticality No Known Allergies Active No Inform ation Medications Medication Instructions Dosage Effective Dates (start - stop) Status Comments FreeStyle Nuria 3 Plus Sensor device To use with NanoVision Diagnosticsstyle Nuria 3 reader, change every 15 days - Active pravastatin 40 mg tablet take 1 tablet by oral route every day 40 MG - Active lisinopril 5 mg tablet take 1 tablet by oral route every day 5 MG - Active Jardiance 10 mg tablet take 1 tablet by oral route every day in the morning 10 MG - Active Lantus Solostar U-100 Insulin 100 unit/mL (3 mL) subcutaneous pen inject 20 units by subcutaneous route at bedtime - Active Pen Needle 29 gauge x 1/2 to use with solostar Lantus pen to inject daily at bedtime - Active FreeStyle Nuria 3 [place] to be used daily for bs monitoring - Active Advance Directives Directive Yes / No Effective Date File Name No Information Encounters Encounter Description Practice Location Reason(s) For Visit Diagnoses Date Provider [facility], [address] [place], [address], tel:[phone] FEDERA-G-H DIETERFaisal JUAQUIN No Information Alex Jasmine. [address], [place], [id number] , . tel: [phone] [facility], [address] [place], [address], tel:[phone] NESTORISIDORO-G-H HRSA JUAQUIN Dominguez (chief complaint) Depression screening (chief complaint) new to establish (chief complaint) Encounter for screening for depressionExtreme povertyLess than a high school diplomaBody mass index [BMI] 24.0-24.9, adultType 2 diabetes mellitus without complicationsHyperlipidem ia, unspecifiedEssential (primary) hypertensionHyponatremiaC hronic kidney disease, stage 3aBacteremiaFatty liver Alex Jasmine. [address], [place], [id number] , . tel: [phone] Family History Family Member Type Diagnosis Age At Onset No Information Payers Payer name Insurance type Covered libertarian ID Authoriza prosperrudy(s) [employer] Adv [employer] CI [id number] Social History Type Description Quantity Date Captured Comments Sex Female Smoking Status No Information Sexual Orientation Straight or heterosexual September Gender Identity Female Chief Complaint And Reason For Visit No Information Plan Of Treatment Date Type Action Status Goal Influenza vaccine. Due on due Goal Urinalysis. Due on 25 due Goal Depression screening. Due on due Goal ASCVD 10 year risk. Due on due Goal Foot exam. Due on due Goal Urine microalbumin. Due on due Goal Hemoglobin A1C. Due on due Goal Dental exam. Due on 025 due Goal GFR. Due on due Goal Dilated eye exam. Due on September due Goal Pneumococcal vaccine. Due on due Goal ECG. Due on due Goal Obtain blood Pressure. Due o n due Goal Diabetes screening. Due on M due Goal Tobacco screening. Due on Ma due Goal DEXA scan. Due on due Goal Lipid panel. Due on due Goal Drug Abuse Screening Test (D AST-10). Due on due Goal Obtain Height, Weight, and B MS. Due on due Goal Vitamin D. Due on due Goal Unhealthy drug use screening . Due on due Goal Tobacco Use Screening. Due o n due Goal Vitamin B12. Due on due Goal Tobacco Use Cessation Counse ling. Due on due Goal TSH. Due on due Goal Hepatitis C Screening. Due o n due Goal Generalized Anxi ety Disorder - 7 (SHAVON-7). Due on due Goal CMP. Due on due Goal CBC. Due on due Goal Follow up Plan f or abnormal BMI (Less than 18.5, greater than 25). Due on due Goal Lifestyle education regardin g diet completed History Of Present Illness Encounter Date Complaint History Of Prese nt Illness new to establish Guera is a 78 yo woman here today with h er step daughter and . She is Lithuanian speaking only. Per her/family report she has been living and [place] up until 2 weeks ago when she relocated here with her step daughter. Prior to establishing care here, her was seen and family mentioned her BS was over 500 for the past few days. I told them to take her to the ER, and they did the next day. On 08/31/24 she was in the ER at [facility] for hyperglycemia. They started her on 10 units of Lantus in the am, and 20 in the evening. He A1c was 12.6, and finger glucose was 325. I am adjusting medications to 20 units Lantus at bedtime, will try Jardiance 10 mg daily for cardioprotective benefits. Unable to take metformin r/t difficulty swallowing large pills. Guera had complained of pain with eating, vomiting and food aversion. So a CT angio of abd/pelves was completed:impression: There is relative hypoperfusion during the arterial phase of the lower pole of the left kidney on the upper pole of the right kidney as described above. This is of uncertain etiology and may be secondary to either small vessel disease or potentially emboli. The renal arteries themselves on the CTA images appear unremarkable. Dense calcification is present at the origin of the celiac axis, that is likely producing approximately 50% luminal diameter stenosis. There is calcification also present at the origin of the superior mesenteric artery, which appears to cause less than 50% of luminal diameter stenosis. Mild adrenal hyperplasia bilaterally, mild fatty infiltration of the liver. Referral to [facility] will be made for evaluation.Hx: Dementia- reported by familyBilateral adrenal hyperplasiafatty liver- [id number] degree thorasic Scoliosis-apex to the leftChronic adilene changes in bases of lungsChronic stage 3 renal failurehyponatremiaHypertriglyceridemiamedications reviewed and changes made todayRTC 1 month for fasting labs/follow upSooner for new problems or concerns Prapare Prapare complete d 09/06/24. -AXEL PARKER Depression screening Depression screening completed 09/06/24. P t scored 0, provider aware. -AXEL PARKER Instructions Date Instruction Additional Infor delmy Low fat, low cholest jessica diet. Avoid fatty, fried, and greasy foods. Physical activity as tolerated. Counseled on risks of associated comorbidities, such as heart disease and stroke. Encouraged avoidance of tobacco products. Related to Hyperlipidemia, unspecified Patient currently do ing well. BP in goal range. No medication changes. Patient instructed to follow a low salt diet, continuing taking blood pressure medications as prescribed. Keep routine follow up with clinic. Related to Essential (primary) hypertension Patient educated on the importance of improved glycemic control. Counseled on diet, exercise and other lifestyle modifications. Monitor blood glucose and keep a log as instructed by checking fasting glucose in the AM and non fasting before bedtime with any additional checks as instructed. Patient instructed to bring glucose log to all scheduled appointments. Instructed on the importance of taking all medications as prescribed. Patient aware of the importance of diabetic eye exams, dental check ups, foot exams and diabetic foot care. Patient verbalized understanding. Related to Type 2 diabetes mellitus without complications Maintain blood press ure levels and sugar levels in goal range to reduce further renal damage. Follow a low-salt, renal diet. Avoid NSAIDs if at all possible. Drink water for hydration. Limit soda consumption. Maintain healthy body weight. Physical activity as tolerated. Related to Chronic kidney disease, stage 3a Giving encouragement to exercise Related to Body mass index [BMI] 24.0-24.9, adult Lifestyle education regarding di et Related to Body mass index [BMI] 24.0-24.9, adult Assessments Type Assessment Date No Information
--- OUTSIDE RECORDS SUMMARY | 2025-04-03 06:57 | XMS_ITS | Patient Health Record ---
Author Organization [facility] Address [address] [place] [address] Care Team Providers Care Cane Feeder Name Role Phone LILI COX MD, UZAIR Primary Care Provider Unavail able Aleksandr Ford Unavailable [phone] Allergies No Known Allergies Reason For Referral [...] Status Risk Notes Problem Gastroesophageal reflux disease (368687070) Gastro-esophag eal reflux disease without esophagitis (K21.9) Active confirmed Problem Stricture of esophagus (56851904) Esophageal stenosis (K22.2) Active confirmed Problem Dysphagia (14435230) Dysphagia (R13.10) Active confirmed Plan Of Treatment Pending Test Test Name Order Date -EGD/DILATION POSSIBLE 07/11/2015 Insurance Providers Payer Name Payer Address Payer Phone Subscriber Number Group Number Insured Name Patient Relationship to Insured Coverage Start Date Coverage End Date [facility] DUAL SNP [address] [address] [place] [phone] [id number] Guera Hernandez Self - patient is the insured MEDICAID [address] [place] [address] [phone] [id number] Guera Hernandez Self - patient is the insured Medical (General) History Medical History History ICD Code diabetes mellitus hyperlipidemia gastroesophageal reflux disease (GERD) Surgical History Surgery Date(Month/Year)
--- NOTE | 2025-04-03 07:15 | CT_ITS ---
FINAL REPORT TECHNIQUE: Thin section axial images were obtained from skull base to vertex without and with contrast. Coronal reconstruction images were obtained from the axial data. Exam was performed using dose reduction techniques such as automated exposure control, adjustment of the mA and kV according to patient size, and use of iterative reconstruction technique. CLINICAL HISTORY: Fall at home, persistent dizziness COMPARISON: None FINDINGS: There is atrophy. No mass effect or midline shift. There is no hydrocephalus. No intracranial hemorrhage. No hydrocephalus. Periventricular low density is likely related to changes of chronic small vessel ischemia. The basilar cisterns are preserved. The posterior fossa is without acute abnormality. The soft tissues are without acute abnormality. Small nonspecific lucent lesion in the right occipital calvarium. Postcontrast images demonstrate no abnormal enhancement. IMPRESSION: No intracranial hemorrhage or evidence of acute large cortical infarct. Atrophy and chronic findings. No abnormal enhancement. Small nonspecific lesion lesion right calvarium. Please correlate with any history of malignancy. Reviewed, Interpreted and Dictated by Nyasia Bullock MD Transcribed by Olivia Harkins Authenticated and [facility]
[2025-04-03 07:35] LABS: Blood Urea Nitrogen 14 mg/dl (7-17); Creatinine,Serum 1.30 mg/dl (0.52-1.04); Estimated Glomerular Filt Rate 39 ml/min (>60); GFR (African American) 48 ML/MIN (>60)
--- NOTE | 2025-04-03 08:00 | US_ITS ---
FINAL REPORT TECHNIQUE: Sonographic images of the abdomen were obtained in all four quadrants. CLINICAL HISTORY: Ongoing abd pain FINDINGS: LIVER: Homogeneous. No focal hepatic lesion or intrahepatic biliary dilatation. GALLBLADDER: Not visualized, likely resected. PANCREAS: Obscured. RIGHT KIDNEY: 9.6 cm. No hydronephrosis, mass or stone. LEFT KIDNEY: 10.0 cm. No hydronephrosis, mass or stone. SPLEEN: 7.8 cm. No focal splenic lesion. AORTA/IVC: No abdominal aortic aneurysm. Visualized IVC within normal limits. OTHER: No ascites. Additional images were obtained along the anterior abdominal wall at the level of the umbilicus. No convincing hernia or abdominal wall fluid collection is seen. IMPRESSION: Unremarkable ultrasound of the abdomen. Reviewed, Interpreted and Dictated by Nyasia Bullock MD Transcribed by Romi Newell Authenticated and [facility]
[2025-04-03] MEDS: SODIUM CHLORIDE 0.9% 10ML SYR (RAD ONLY) 10 ML IV (08:03)
[2025-04-03] MEDS: IOPAMIDOL-300 (61%) 100ML VIAL 100 ML IV (08:03)
== END 2025-04-03 23:59 | disposition home or self-care (01) ==
LOC: RAD 06:55
PROVIDERS: PCP Internal Medicine; Visit Provider Internal Medicine
DX: G31.9 Degenerative disease of nervous system, unspecified (principal); G93.89 Other specified disorders of brain; R10.9 Unspecified abdominal pain; R42 Dizziness and giddiness; R51.9 Headache, unspecified; W19.XXXA Unspecified fall, initial encounter; Y92.009 Unspecified place in unspecified non-institutional (private) residence as the place of occurrence of the external cause
CPT/HCPCS: 36415; 70470; 76700; 82565; 84520; Q9967